=== PATIENT | female | born 1995 | race Caucasian/White ===

== ENCOUNTER 2019-05-26 12:36 | Emergency (ER) | payer MEDICAID ==
[~2019-05-26] VITALS: Ht 165.1 cm; Wt 73.0 kg
[~2019-05-26 12:36] MED LIST: GUAI100G2; GUAN1TAB12; prozac
--- NOTE | 2019-05-26 13:30 | NUR ---
THROUGH PUT RN, CALLED [facility] TO REVIEW PT.
--- NOTE | 2019-05-26 13:34 | NUR ---
PT TO ED FROM HOME W/ MOM. +SI. "LAST NIGHT I THOUGHT ABOUT KILLING MYSELF. I WANTED TO DRIVE MY TRUCK OFF THE ROAD." HX PREVIOUS SI AND ATTEMPT, HAS BEEN HOSPITALIZED FOR SAME. FEMALE TO MALE TRANSITION. IDENTIFIES MALE. GOES BY "[facility]". HX BIPOLAR/BPD. STOPPED TAKING DEPAKOTE 4 WKS AGO "IT MADE ME FEEL MORE LIKE I WANTED TO KILL MYSELF.". VSS. MOM AT BEDSIDE. BELONGINGS IN LOCKER SEE LIST. SITTER IN [place] FOR SAFETY. AWAITING MD. CALL [facility] IN REACH. NO PHYSICAL COMPLAINTS.
[2019-05-26 14:50] LABS: HCG UR SG 1.026 (1.003-1.030)
[2019-05-26 14:56] LABS: BASOPHILS # (AUTO) 0.07 x10^3/uL (0-0.1); BASOPHILS % (AUTO) 1 % (0-1); EOSINOPHILS # (AUTO) 0.08 x10^3/uL (0-0.4); EOSINOPHILS % (AUTO) 1 % (1-7); LYMPHOCYTES # (AUTO) 2.66 x10^3/uL (1-3.4); LYMPHOCYTES % (AUTO) 31 % (22-44); MD NO; MEAN CORPUSCULAR HEMOGLOBIN 30.6 pg (27.0-34.8); MEAN CORPUSCULAR HGB CONC 33.3 g/dL (32.4-35.8); MEAN CORPUSCULAR VOLUME 91.8 fL (80-100); MEAN PLATELET VOLUME 8.1 fL (7.4-10.4); MONOCYTES # (AUTO) 0.56 x10^3/uL (0.2-0.8); MONOCYTES % (AUTO) 7 % (2-9); NEUTROPHILS # (AUTO) 5.27 x10^3/uL (1.8-6.8); NEUTROPHILS % (AUTO) 61 % (42-75); PLATELET COUNT 323 x10^3/uL (130-400); RED BLOOD COUNT 5.05 x10^6/uL (3.82-5.3); RED CELL DISTRIBUTION WIDTH 13.8 % (9.6-15.2)
[2019-05-26 15:01] LABS: AMPHETAMINE SCREEN, URINE Negative (Negative); BARBITURATE SCREEN, URINE Negative (Negative); BENZODIAZEPINE SCREEN, URINE Negative (Negative); CANNABINOID SCREEN, URINE Negative (Negative); COCAINE SCREEN, URINE Negative (Negative); METHADONE SCREEN, URINE Negative (Negative); OPIATE SCREEN, URINE Negative (Negative)
[2019-05-26 15:07] LABS: ALANINE AMINOTRANSFERASE 27 U/L (12-78); ALBUMIN 4.2 g/dL (3.4-5.0); ANION GAP 5 mmol/L (5-15); CALCIUM 9.1 mg/dL (8.5-10.1); CHLORIDE 109 mmol/L (98-107); CREATININE 0.87 mg/dL (0.55-1.02); SALICYLATE LEVEL 1.9 mg/dL (2.8-20.0)
[2019-05-26 15:10] LABS: ALKALINE PHOSPHATASE 78 U/L (45-117); BILIRUBIN,TOTAL 1.3 mg/dL (0.2-1.0); TOTAL PROTEIN 7.9 g/dL (6.4-8.2)
--- NOTE | 2019-05-26 15:17 | NUR ---
UA/LABS WNL. GOT TRAY. FAM AT BEDSIDE. SIT AT BEDSIDE. NAD.
--- NOTE | 2019-05-26 15:34 | NUR ---
awaiting psych slab inspector. as
--- NOTE | 2019-05-26 16:54 | NUR ---
PT ON LEGAL HOLD. CALM, COOPERATIVE.
--- NOTE | 2019-05-26 17:46 | NUR ---
PT GIVEN DINNER.
--- NOTE | 2019-05-26 18:07 | NUR ---
PT MOVED TO ROOM 40. MOM AT BEDSIDE. SIT IN PLACE. PT CALM, COOPERATIVE.
--- NOTE | 2019-05-26 18:33 | NUR ---
LATE NOTE ENTRY. THROUGH PUT RN FAXED PACKET TO [facility], [facility], AND [facility] AT [phone].
--- NOTE | 2019-05-26 18:34 | NUR ---
THROUGH PUT RN NOTIFIED BY [facility] REFRIGERATOR ASSEMBLER THAT [facility] WILL ACCEPT PT "AFTER SHIFT CHANGE FOR JAZMYN".
--- NOTE | 2019-05-26 18:53 | NUR ---
ATTEMPT TO CALL REPORT, PSYCH NURSE STS SHE IS UNABLE TO TAKE REPORT AT THIS MOMENT, REPORT TO NOC MATHEW MITCHELL.
--- NOTE | 2019-05-26 19:38 | NUR ---
Attempted to call report to behavioral health unit at [phone]. journal entry audit clerk was unable to find RN to receive report.
[2019-05-26 20:17] VITALS: BP_SYST 128; BP_SYST 132; BP_SYST 144; BP_DIAS 87; BP_DIAS 88; BP_DIAS 89
[2019-05-27] MEDS ORDERED: TEST200V3 IM (01:09)
== END 2019-05-26 21:14 ==
LOC: ED 15:10 → UNDOADMIN 20:03 → 3E 20:03 → ED 21:14
DX: R45.851 Suicidal ideations (principal); J45.909 Unspecified asthma, uncomplicated; F17.200 Nicotine dependence, unspecified, uncomplicated; Z90.10 Acquired absence of unspecified breast and nipple
CPT/HCPCS: 36415; 80053; 80307; 81025; 82140; 85025; 99285

== ENCOUNTER 2019-05-26 18:41 | Inpatient (IN) | payer MEDICAID ==
[~2019-05-26] VITALS: Ht 165.1 cm; Wt 73.0 kg
[2019-05-26] MEDS ORDERED: ONDANSETRON ODT 4 MG PO PRN (19:30)
[2019-05-26] MEDS ORDERED: POLYETHYLENE GLYCOL 17 GM PACKET PO PRN (19:30)
[2019-05-26] MEDS ORDERED: BISACODYL 10 MG SUPP PR PRN (19:30)
[2019-05-26] MEDS ORDERED: ACETAMINOPHEN 325 MG TABLET PO PRN (19:30)
[2019-05-26] MEDS ORDERED: DOCUSATE 100 MG CAPSULE PO PRN (19:30)
[2019-05-26 20:27] LABS: CHOL/HDL RATIO 3.5; FREE T4 (FREE THYROXINE) 1.04 ng/dL (0.76-1.46); LDL/HDL RATIO 1.9 (0.5-3.0)
[2019-05-26] MEDS ORDERED: NICOTINE 21 MG/24 HR PATCH.TD24 TD SCH (21:00)
[2019-05-26] MEDS ORDERED: MELATONIN 3 MG TABLET PO PRN (21:00)
[2019-05-26 23:00] VITALS: BP 128/85
[2019-05-27] MEDS ORDERED: TEST200V3 IM (01:09)
[2019-05-27 07:29] VITALS: BP 117/74
[2019-05-27] MEDS ORDERED: NICOTINE GUM 2 MG BC PRN (10:00)
[2019-05-27] MEDS ORDERED: NICOTINE GUM 4 MG BC ONE (10:02)
[2019-05-27 19:19] VITALS: BP 118/73
[2019-05-28 07:22] VITALS: BP 114/74
== END 2019-05-28 13:19 | disposition home or self-care (01) | DRG 753 ==
LOC: 3E 21:14
PROVIDERS: ADMIT Psychiatry & Neurology Psychosomatic Medicine; ATTEND Psychiatry & Neurology Psychosomatic Medicine
DX: F31.30 Bipolar disorder, current episode depressed, mild or moderate severity, unspecified (principal); R45.851 Suicidal ideations; Z91.14 Patient's other noncompliance with medication regimen; F17.200 Nicotine dependence, unspecified, uncomplicated; F43.10 Post-traumatic stress disorder, unspecified; F63.9 Impulse disorder, unspecified; F64.9 Gender identity disorder, unspecified; I10 Essential (primary) hypertension; Z91.19 Patient's noncompliance with other medical treatment and regimen; Z88.2 Allergy status to sulfonamides; Z88.1 Allergy status to other antibiotic agents; Z88.8 Allergy status to other drugs, medicaments and biological substances
CPT/HCPCS: 36415; 71045; 80061; 84439; 84443; 93005